=== PATIENT | male | born 1980 | race Caucasian/White ===

== ENCOUNTER 2025-08-22 08:31 | Emergency (ER) | payer BC, SELFPAY ==
--- OUTSIDE RECORDS SUMMARY | 2025-08-22 08:40 | XMS_ITS ---
Author Organization Unknown ENCOUNTERS Encounter Performer Location Date Diagnosis Diagnosis Status Pre Admit [place] [address] [place] [id number] [phone] *Note: Encounters from your own facility or health system may be excluded. Allergies, Adverse Reactions, Alerts Allergen Type Severity Identification Date Medications Name Date Quantity Days Supplied GPI Number
--- OUTSIDE RECORDS SUMMARY | 2025-08-22 08:40 | XMS_ITS | Clinical Summary ---
Author Organization [facility] [address] Address [address] [place] [address] Care Team Providers Care Hydrochloric Area Supervisor Name Role Phone Geovany Islas MD Primary Care Provider Allergies No known active allergies Medications vitamin D3-vitamin K2 25 mcg (1,000 unit)-90 mcg tablet,disintegr ating Take by mouth Active Active Problems Problem Noted Date Diagnosed Date Encounter for preventive health examination 07/10 Assessment & Plan (07/30/2025 4:04 PM CDT): Continue healthy lifestyle. Limit alcohol consumption. Start colon cancer screening at age 45 and prostate cancer screening at age 50. Recommend the following vaccinations: - Annual COVID and flu shots - Tetanus booster every 10 years - Shingrix at age 50 - [id number] at age 50 Assessment & Plan (07/26/2024 12:12 PM CDT): Counseling provided on healthy lifestyle. Exercise 30 minutes per day 5x weekly. Eat heart healthy (Mediterranean) diet of fruits, vegetables, and whole grains; avoid saturated fats and excess sweets. Limit alcohol use; we discussed that although drinking infrequently, having more than 3 beers at a time is considered to be binge drinking. Start colon cancer screening at age 45 and prostate cancer screening at age 50. Recommend the following vaccinations: - Annual COVID and flu shots - Tetanus booster every 10 years - Shingrix at age 50 - Ziezrot24 at age 65 Lipid screening 07/26/2024 Chest tightness 07/26/2024 Assessment & Plan (07/26/2024 12:11 PM CDT): Very low likelihood of cardiac etiology as there is no chest pain with exertion. I offered reassurance. Encounters Date Type Department Care Team Description 08/01/2025 Results Follow-Up [facility] [address] [place] [phone] Geovany Islas MD Comprehensive metabolic panel, CBC with auto differential, TSH, Additional followed-up results: 4 07/30/2025 2:30 PM CDT Office Visit [facility] [address] [place] [phone] Geovany Islas MD Encounter for preventive health examination (Primary Dx); Hyperlipidemia, unspecified hyperlipidemia type; Need for hepatitis B screening test from Last 3 Months Family History Medical History Relation Name Comments Hyperlipidemia Father Atrial fibrillation Mother Heart disease Mother Relation Name Status Comments Father Mother Social History Tobacco Use Types Packs/Day Years Used Date Smoking Tobacco: Never Smokeless Tobacco: Never Tobacco Cessation:Counseling Given: No AUDIT-C Answer Date Recorded Q1: How often do you have a drink containing alc ohol? 2-4 times a month 07/26/2024 Q2: How many drinks containi ng alcohol do you have on a typical day when you are drinking? 7 to 9 07/26/2024 Q3: How often do you have si x or more drinks on one occasion? Monthly 07/26/2024 PHQ-2 Answer Date Recorded PHQ-2 Total Score (If total score is 3 or more points, staff should administer the PHQ-9) 0 07/26/2024 Exercise Vital Sign Answer Date Recorde d On average, how many days pe r week do you engage in moderate to strenuous exercise (like a brisk walk)? 7 days 07/26/2024 On average, how many minutes do you engage in exercise at this level? 60 min 07/26/2024 Sex and Gender Information Value Date Recorded Sex Assigned at Not on file Legal Sex Male 10:36 AM CDT Gender Identity Not on file Sexual Orientation Not on file Last Filed Vital Signs Vital Sign Reading Time Taken Comments Blood Pressure 98/62 07/30/2025 2:59 PM CDT Pulse 53 07/30/2025 2:59 PM CDT Temperature - - Respiratory Rate - - Oxygen Saturation 98% 07/30/2025 2:59 PM CDT Inhaled Oxygen Concentration - - Weight 93.4 kg (206 lb) 07/30/2025 2:59 PM CDT Height 185.4 cm (6' 0.99) 07/30/2025 2:59 PM CD T Body Mass Index 27.18 07/30/2025 2:59 PM CDT Plan of Treatment Health Maintenance Due Date Last Done Comments Varicella Vaccines (1 of 2 - 13+ 2-dose series) 1995 HPV Vaccines (1 - 3-dose SCD M series) 2009 Covid-19 Vaccine (3 - 2024-2 6 season) 2025 12/14/2020, 11/23/2020 Influenza Vaccine (#1) 2025 07/25/2019 Depression Screening 07/26/2025 07/26/2024 DTaP/Tdap/Td Vaccine (2 - Td or Tdap) 05/21/2026 05/21/2016 Regular Well Visit/Exam 18-64 07/30/2026 07/30/2025 Hepatitis C Screening Completed 07/26/2024 Hepatitis B Screening Completed 07/31/2025 Pneumococcal vaccine <65 Aged Out No longer eligible based on patient's age to complete this topic Procedures Procedure Name Priority Date/Time Associated Diagnosis Comments LIPID PANEL Routine 07/31/2025 7:10 AM CDT Hyperlipidemia, unspecified hyperlipidemia type TSH Routine 07/31/2025 7:10 AM CDT Hyperlipidemia, unspecified hyperlipidemia type CBC WITH AUTO DIFFERENTIAL Routine 07/31/2025 7:10 AM CDT Hyperlipidemia, unspecified hyperlipidemia type COMPREHENSIVE METABOLIC PANEL Routine 07/31/2025 7:10 AM CDT Hyperlipidemia, unspecified hyperlipidemia type HEPATITIS B SURFACE ANTIBODY (IMMUNE STATUS) Routine 07/31/2025 7:10 AM CDT Need for hepatitis B screening test HEPATITIS B CORE ANTIBODY, TOTAL Routine 07/31/2025 7:10 AM CDT Need for hepatitis B screening test HEPATITIS B SURFACE ANTIGEN Routine 07/31/2025 7:10 AM CDT Need for hepatitis B screening test HEPATITIS C ANTIBODY Routine 07/26/2024 11:07 AM CDT Encounter for hepatitis C screening test for low risk patient from Last 3 Months or Most Recently Relevant to Health Maintenance Results * CBC with auto differential (07/31/2025 7:10 AM CDT) WBC 5.1 3.8 - 10.8 Thousand/u L [employer] RBC, POC 5.19 4.20 - 5.80 Million/uL [employer] Hgb 15.9 13.2 - 17.1 g/dL [employer] Hct 48.9 38.5 - 50.0 % [employer] MCV 94.2 80.0 - 100.0 fL [employer] MCH 30.6 27.0 - 33.0 pg [employer] MCHC 32.5 32.0 - 36.0 g/dL [employer] Comment: For adults, a slight decrease in the calculated MCHC value (in the range of 30 to 32 g/dL) is most likely not clinically significant; however, it should be interpreted with caution in correlation with other red cell parameters and the patient's clinical condition. Rdw 12.3 11.0 - 15.0 % [employer] Platelets 257 140 - 400 Thousand/u L [employer] MPV 9.8 7.5 - 12.5 fL [employer] Neutrophils, abs 2,310 1,500 - 7,800 cells/uL [employer] Lymphocytes, abs 2,050 850 - 3,900 cells/uL [employer] Monocyte abs 500 200 - 950 cells/uL [facility] Eosinophils, abs 199 15 - 500 cells/uL [facility] [employer] [facility] Basophils, abs 41 0 - 200 cells/uL [employer] Neutrophils 45.3 % [employer] Lymphocyte pct 40.2 % [employer] Monocytes 9.8 % [employer] Eosinophils 3.9 % [employer] Basophils 0.8 % [employer] Blood 07/31/2025 7:10 AM CDT 07/31/2025 7:11 AM CDT Narrative [facility] - 08/01/2025 5:30 AM CDT FASTING:YES FASTING: YES Geovany Islas MD LAB BLOOD ORDERABLES Fi nal Result Performing Organization Address City/[facility] Co de Phone Number [facility] [address] [place] [address] * Hepatitis B core antibody, total Blood (07/31/2025 7:10 AM CDT) Hep B core IgG/IgM NON-REACTI VE NON-REACTI VE [facility] Comment: For additional information, please refer to http://education.InSe[employer] Systems/faq/DTA557 (This link is being provided for informational/ educational purposes only.) Blood 07/31/2025 7:10 AM CDT 07/31/2025 7:11 AM CDT Narrative [facility] - 08/01/2025 5:30 AM CDT FASTING:YES FASTING: YES Geovany Islas MD LAB MICROBIOLOGY - GENE RAL ORDERABLES Final Result Performing Organization Address [facility] de Phone Number [facility] [address] [place] [address] * (ABNORMAL) Hepatitis B surface antibody (immune status) Blood (07/31/2025 7:10 AM CDT) Pathologist [facility] HBsAb (immune status) REACTIVE(A ) NON-REACTI VE [facility] Blood 07/31/2025 7:10 AM CDT 07/31/2025 7:11 AM CDT Narrative [facility] - 08/01/2025 5:30 AM CDT FASTING:YES FASTING: YES Geovany Islas MD LAB MICROBIOLOGY - GENE RAL ORDERABLES Final Result Performing Organization Address [facility] Co de Phone Number [facility] [address] [place] [address] * Hepatitis B Surface Antigen Blood (07/31/2025 7:10 AM CDT) [facility] HepBsAg NON-REACTI VE NON-REACTI VE [facility] Comment: For additional information, please refer to http://education.InSe[employer] Systems/faq/XAA965 (This link is being provided for informational/ educational purposes only.) Blood 07/31/2025 7:10 AM CDT 07/31/2025 7:11 AM CDT Narrative [facility] - 08/01/2025 5:30 AM CDT FASTING:YES FASTING: YES Geovany Islas MD LAB MICROBIOLOGY - GENE RAL ORDERABLES Final Result Performing Organization Address [facility] Co de Phone Number [facility] [address] [place] [address] * TSH (07/31/2025 7:10 AM CDT) [facility] TSH 1.53 0.40 - 4.50 mIU/L [facility] Blood 07/31/2025 7:10 AM CDT 07/31/2025 7:11 AM CDT Narrative [facility] - 08/01/2025 5:30 AM CDT FASTING:YES FASTING: YES Geovany Islas MD LAB BLOOD ORDERABLES Fi nal Result [facility] [address] [place] [address] * (ABNORMAL) Lipid panel (07/31/2025 7:10 AM CDT) [facility] Cholesterol 236(H) <200 mg/dL [facility] HDL 73 > OR = 40 mg/dL [facility] Triglycerides 166(H) <150 mg/dL [facility] LDL 133(H) mg/dL (calc) [facility] Comment: Reference range: <100 Desirable range <100 mg/dL for primary prevention; <70 mg/dL for patients with CHD or diabetic patients with > or = 2 CHD risk factors. LDL-C is now calculated using the Fercho calculation, which is a validated novel method providing better accuracy than the Friedewald equation in the estimation of LDL-C. Hoang CARD et al. DOUGLAS. 2013;310(19): 3217-3897 (http://education.Rue La La/faq/WGV524) Chol/HDL ratio 3.2 <5.0 (calc) [facility] Non-HDL, (LDL+VLDL) 163(H) <130 mg/dL (calc) [facility] Comment: For patients with diabetes plus 1 major ASCVD risk factor, treating to a non-HDL-C goal of <100 mg/dL (LDL-C of <70 mg/dL) is considered a therapeutic option. Blood 07/31/2025 7:10 AM CDT 07/31/2025 7:11 AM CDT Narrative [facility] - 08/01/2025 5:30 AM CDT FASTING:YES FASTING: YES us Geovany Islas MD LAB BLOOD ORDERABLES nal Result [facility] [address] [place] [address] * Comprehensive metabolic panel (07/31/2025 7:10 AM CDT) [facility] Glucose 93 65 - 99 mg/dL [facility] Comment: Whole blood, unspun or partially spun gel barrier tube was received more than 6 hours since collection. A false elevation of K, Phos and LD as well as a false decrease in glucose may occur due to prolonged contact with red cells. Fasting reference interval BUN 19 7 - 25 mg/dL [facility] Creatinine 1.17 0.60 - 1.29 mg/dL [facility] eGFR 79 > OR = 60 mL/min/1.7 3m2 [facility] BUN/creat ratio SEE NOTE: (calc) [facility] Comment: Not Reported: BUN and Creatinine are within reference range. Sodium 140 135 - 146 mmol/L [facility] Potassium, pl 4.3 3.5 - 5.3 mmol/L [facility] Chloride 102 98 - 110 mmol/L [facility] CO2 30 20 - 32 mmol/L [facility] Calcium 9.5 8.6 - 10.3 mg/dL [facility] Protein, sr 7.0 6.1 - 8.1 g/dL [facility] Albumin 4.6 3.6 - 5.1 g/dL [facility] GLOBULIN 2.4 1.9 - 3.7 g/dL (calc) [facility] Alb/glob ratio 1.9 1.0 - 2.5 (calc) [facility] Bilirubin, total 0.6 0.2 - 1.2 mg/dL [facility] Alk phos 39 36 - 130 U/L [facility] AST 15 10 - 40 U/L [facility] ALT (SGPT) 17 9 - 46 U/L [facility] Blood 07/31/2025 7:10 AM CDT 07/31/2025 7:11 AM CDT Narrative [facility] - 08/01/2025 5:30 AM CDT FASTING:YES FASTING: YES Geovany Islas MD LAB BLOOD ORDERABLES Fi nal Result Performing Organization Address City/State/[facility] Co de Phone Number [facility] [address] [place] [address] * Hepatitis C antibody Blood (07/26/2024 11:07 AM CDT) Hep C Ab Nonreactive Nonreactive Comment:Antibodies to HCV no t detected. Does NOT exclude the possibility of recent exposure to HCV. Current interpretive data was last revised on 22 Blood 07/26/2024 11:0 7 AM CDT 07/26/2024 11:29 AM CDT Geovany Islas MD LAB MICROBIOLOGY - GENE RAL ORDERABLES Final Result [facility] Department [place] [address] from Last 3 Months or Most Recently Relevant to Health Maintenance Insurance [employer] ACCESS OOS Algol[employer] OOS Care Teams Hydrochloric Area Supervisor Relationship Specialty Start Date End Date Geovany Islas MD PCP - General Endocrinology Diabetes & Metabolism 04/25/24
--- OUTSIDE RECORDS SUMMARY | 2025-08-22 08:40 | XMS_ITS | Encounter Summary ---
Author Organization [facility] Address [address] [place] [address] Care Team Providers Care Insurance Adjustor Name Role Phone Geovany Islas MD Primary Care Provider Encounter Details Date Type Department Care Team (Late st Contact Info) Description 08/01/2025 Results Follow-Up [facility] [address] [facility] [address] [place] [address] Geovany Islas MD [facility] [address] [place] [address] Comprehensive metabolic panel, CBC with auto differential, TSH, Additional followed-up results: 4 Social History Tobacco Use Types Packs/Day Years Used Date Smoking Tobacco: Never Smokeless Tobacco: Never AUDIT-C Answer Date Recorded Q1: How often [...] on file Sexual Orientation Not on file documented as of this encounter Miscellaneous Notes * Result Encounter Note - Geovany Islas MD - 08/01/2025 8:19 AM CDT Labs look good. Cholesterol stable from prior. Immune to hepatitis B. Kidney function, liver function, thyroid, blood counts are normal. documented in this encounter Plan of Treatment Not on file documented as of this encounter Visit Diagnoses Not on filedocumented in this encounter Care Teams Insurance Adjustor Relationship Specialty Start Date End Date Geovany Islas MD PCP - General Endocrinology Diabetes & Metabolism 04/25/24 documented as of this encounter
[2025-08-22 08:45] VITALS: BP 122/78; PULSE 54; RESP 18; TEMP 37.1; O2SAT 100
--- NOTE | 2025-08-22 09:46 | PC.NURSE ---
tourniquet placed at 0946 on right thumb
--- NOTE | 2025-08-22 11:06 | ED_ITS ---
HPI - Wound/Laceration General Chief Complaint: Wound/Laceration Stated Complaint: laceration Time Seen by Provider: 08/22/25 09:05 Source: patient Mode of arrival: ambulatory Limitations: no limitations History of Present Illness HPI narrative: This is a 45 year old male that presents to the ER for laceration to the right thumb. Sustained just prior to arrival. Avulsed skin on his thumb with a mirror he was carrying that broke. Denies decreased ROM or numbess. Related Data Allergies Allergy/AdvReac Type Severity Reaction Status Date / Time No Known Allergies Allergy Unverified 08/27/25 11:35 Review of Systems Review of Systems: All systems reviewed & are unremarkable except as noted in HPI and below PMFSH Family History Family History (Updated 11/09/16 @ 08:15 by DOCTOR UNKNOWN) Father Hypertension Mother Patient's mother is in good health Sibling Patient's brother is in good health Social History Social History Smoking status: Never smoker Second hand tobacco smoke exposure: No Alcohol intake: current Exam Narrative: GENERAL: Well-appearing, well-nourished, and in no acute distress. HEAD: Normocephalic, atraumatic. EYES: EOMI. EXTREMITIES: Normal range of motion. No edema. Large skin avulsion to the lateral aspect of the thumb SKIN: Warm, dry, no rash. NEURO: No focal deficits. Alert and oriented x3. PSYCH: Normal mood and affect Course Consultations Consultation #1: Spoke with Dr. Thao who recommends bleeding control with lidocaine with epi on gauze applied to the area. Dress with antibiotic ointment and xeroform. He may follow up in clinic Date: 08/22/25 Vital Signs Vital signs: Vital Signs Temperature 98.7 F 08/22/25 08:45 Pulse Rate 54 L 08/22/25 08:45 Respiratory Rate 18 08/22/25 08:45 Blood Pressure 122/78 08/22/25 08:45 Pulse Oximetry 100 08/22/25 08:45 Temperature 98.7 F 08/22/25 08:45 Pulse Rate 62 08/22/25 11:31 Respiratory Rate 18 08/22/25 11:31 Blood Pressure 130/72 08/22/25 11:31 Pulse Oximetry 100 08/22/25 11:31 Procedures Laceration Laceration 1: Date: 08/22/25 Site: upper extremity Side (If applicable): right Size (cm): 4 Description: other (skin avulsion) Depth: simple, single layer ====== Skin Level ====== ====== Subcutaneous Layer ====== ====== Muscle Layer ====== ====== Tendon Layer ====== Dressing: Wound irrigated and bleeding controlled with lidocaine with epi topically, dressed with Xeroform, antibiotic ointment, nonstick dressing MDM - Wound/Laceration MDM Narrative Medical decision making narrative: Patient presents to the emergency department with large skin avulsion to the right lateral aspect of the thumb. Plastics consulted, bleeding controlled and wound dressed as directed. Tetanus is up to date. Will follow up with Dr. Thao in clinic Differential Diagnosis Differential diagnosis: Likely laceration and avulsion of skin Critical Care Time Critical Care Time Critical Care Time: No Discharge Plan Discharge Clinical Impression: Laceration Patient Disposition: Home Condition: Stable Instructions: Antibiotic Form, Skin Avulsion (ED) Additional Instructions: Return to the emergency department if you experience fever, redness or swelling of your wound, abnormal drainage from your wound, or any other symptoms that are concerning to you. Leave the bandage on for the next 2-3 days. When you shower let the water run over the wound. Apply antibiotic ointment and nonstick bandage and wrap with gauze. If you have trouble with bleeding again hold pressure to the area for 15 minutes solid without moving the gauze/peeking at the wound. Take oral antibiotic as prescribed Follow-up with plastic surgery (Dr. Thao) for further management Patient Language: Lithuanian Prescriptions: New cephalexin 500 mg capsule 500 mg PO Q8H 5 Days Qty: 15 0RF hydrocodone-acetaminophen 5-325 mg tablet 1 tablet PO Q6H PRN (Reason: pain) Qty: 10 0RF Follow-up/Referrals: Jah Thao MD [Physician, Plastic Surgery] PHYSICIAN,ASSEMBLER [facility] [Primary Care Provider, Internal Medicine]
--- OUTSIDE RECORDS SUMMARY | 2025-08-22 11:23 | XMS_ITS | Clinical Summary ---
Author Organization [facility] [address] Address [address] [place] [address] Care Team Providers Care Pipe Line Repairer Name Role Phone Geovany Islas MD Primary [...] years - Shingrix at age 52 - [id number] at age 52 Assessment & Plan (07/26/2024 [...] years - Shingrix at age 52 - [id number] at age 67 Lipid screening 07/26/2024 Chest tightness 07/26/2024 Assessment & Plan (07/26/2024 12:11 PM CDT): Very low likelihood of cardiac etiology as there is no chest pain with exertion. I offered reassurance. Encounters Date Type Department Care Team Description 08/01/2025 Results Follow-Up [facility] [address] [place] [phone] Geovany Islas MD Comprehensive metabolic panel, CBC with auto differential, TSH, Additional followed-up results: 4 07/30/2025 2:30 PM CDT Office Visit [facility] [address] [place] [phone] Geovany Islas MD Encounter for preventive health [...] WBC 5.1 3.8 - 10.8 Thousand/u L [employer] RBC, POC 5.19 4.20 - 5.80 Million/uL [employer] Hgb 15.9 13.2 - 17.1 g/dL [employer] Hct 48.9 38.5 - 50.0 % [employer] MCV 94.2 80.0 - 100.0 fL [employer] MCH 30.6 27.0 - 33.0 pg [employer] MCHC 32.5 32.0 - 36.0 g/dL [employer] Comment: For adults, a slight decrease in the calculated MCHC value (in the range of 30 to 32 g/dL) is most likely not clinically significant; however, it should be interpreted with caution in correlation with other red cell parameters and the patient's clinical condition. Rdw 12.3 11.0 - 15.0 % [employer] Platelets 257 140 - 400 Thousand/u L [employer] MPV 9.8 7.5 - 12.5 fL [employer] Neutrophils, abs 2,310 1,500 - 7,800 cells/uL [employer] Lymphocytes, abs 2,050 850 - 3,900 cells/uL [employer] Monocyte abs 500 200 - 950 cells/uL [employer] [facility] Eosinophils, abs 199 15 - 500 cells/uL [employer] [place] Basophils, abs 41 0 - 200 cells/uL [employer] Neutrophils 45.3 % [employer] Lymphocyte pct 40.2 % [employer] Monocytes 9.8 % [employer] Eosinophils 3.9 % [employer] Basophils 0.8 % [employer] Blood 07/31/2025 7:10 AM CDT 07/31/2025 7:11 AM CDT Narrative [facility] - 08/01/2025 5:30 AM CDT FASTING:YES FASTING: YES Geovany Islas MD LAB BLOOD ORDERABLES Fi nal Result Performing Organization Address [facility] Co de Phone Number [facility] [address] [place] [address] * Hepatitis B core antibody, total Blood (07/31/2025 7:10 AM CDT) Hep B core IgG/IgM NON-REACTI VE NON-REACTI VE [facility] Comment: For additional information, please refer to http://education.Zenoss/faq/LMF507 (This link is being provided for informational/ educational purposes only.) Blood 07/31/2025 7:10 AM CDT 07/31/2025 7:11 AM CDT Narrative [facility] - 08/01/2025 5:30 AM CDT FASTING:YES FASTING: YES Geovany Islas MD LAB MICROBIOLOGY - GENE RAL ORDERABLES Final Result Performing Organization Address [facility] de Phone Number [email or web address] [address] [place] [address] * (ABNORMAL) Hepatitis B surface antibody (immune status) Blood (07/31/2025 7:10 AM CDT) Pathologist [facility] HBsAb (immune status) REACTIVE(A ) NON-REACTI VE [facility] Blood 07/31/2025 7:10 AM CDT 07/31/2025 7:11 AM CDT Narrative [facility] - 08/01/2025 5:30 AM CDT FASTING:YES FASTING: YES Geovany Islas MD LAB MICROBIOLOGY - GENE RAL ORDERABLES Final Result Performing Organization Address [facility] Co de Phone Number [facility] [address] [place] [address] * Hepatitis B Surface Antigen Blood (07/31/2025 7:10 AM CDT) [facility] HepBsAg NON-REACTI VE NON-REACTI VE [facility] Comment: For additional information, please refer to http://education.Zenoss/faq/DJM209 (This link is being provided for informational/ educational purposes only.) Blood 07/31/2025 7:10 AM CDT 07/31/2025 7:11 AM CDT Narrative [facility] - 08/01/2025 5:30 AM CDT FASTING:YES FASTING: YES Geovany Islas MD LAB MICROBIOLOGY - GENE RAL ORDERABLES Final Result Performing Organization Address [facility] Co de Phone Number [email or web address] [address] [place] [address] * TSH (07/31/2025 7:10 AM CDT) [facility] TSH 1.53 0.40 - 4.50 mIU/L [facility] Blood 07/31/2025 7:10 AM CDT 07/31/2025 7:11 AM CDT Narrative [facility] - 08/01/2025 5:30 AM CDT FASTING:YES FASTING: YES Geovany Islas MD LAB BLOOD ORDERABLES Fi nal Result [facility] [address] [place] [address] * (ABNORMAL) Lipid panel (07/31/2025 7:10 AM CDT) [facility] Cholesterol 236(H) <200 mg/dL [facility] [...] LDL-C. Hoang CARD et al. DOUGLAS. 2013;310(19): 3855-7010 (http://education.ViaBill/faq/BGE592) Chol/HDL ratio 3.2 <5.0 (calc) [facility] Non-HDL, (LDL+VLDL) 163(H) <130 mg/dL (calc) [facility] Comment: For patients with diabetes plus 1 major ASCVD risk factor, treating to a non-HDL-C goal of <100 mg/dL (LDL-C of <70 mg/dL) is considered a therapeutic option. Blood 07/31/2025 7:10 AM CDT 07/31/2025 7:11 AM CDT Narrative [facility] - 08/01/2025 5:30 AM CDT FASTING:YES FASTING: YES us Geovany Islas MD LAB BLOOD ORDERABLES nal Result [facility] [address] [place] [address] * Comprehensive metabolic panel (07/31/2025 7:10 AM CDT) [facility] Glucose 93 65 - 99 mg/dL [facility] Comment: Whole blood, unspun or partially [...] > OR = 60 mL/min/1.7 3m2 [facility] BUN/creat ratio SEE NOTE: (calc) [facility] Comment: Not Reported: BUN and Creatinine are within reference range. Sodium 140 135 - 146 mmol/L [facility] Potassium, pl 4.3 3.5 - [...] ratio 1.9 1.0 - 2.5 (calc) [facility] Bilirubin, total 0.6 0.2 - 1.2 mg/dL [facility] Alk phos 39 36 - 130 U/L [facility] AST 15 10 - 40 U/L [facility] ALT (SGPT) 17 9 - 46 U/L [facility] Blood 07/31/2025 7:10 AM CDT 07/31/2025 7:11 AM CDT Narrative [facility] - 08/01/2025 5:30 AM CDT FASTING:YES FASTING: YES Geovany Islas MD LAB BLOOD ORDERABLES Fi nal Result Performing Organization Address City/State/[facility] Co de Phone Number [facility] [address] [place] [address] * Hepatitis C antibody Blood (07/26/2024 11:07 AM CDT) Hep C Ab Nonreactive Nonreactive Comment:Antibodies to HCV no t detected. Does NOT exclude the possibility of recent exposure to HCV. Current interpretive data was last revised on 22 Blood 07/26/2024 11:0 7 AM CDT 07/26/2024 11:29 AM CDT Geovany Islas MD LAB MICROBIOLOGY - GENE RAL ORDERABLES Final Result [facility] Department [place] [address] from Last 3 Months or Most Recently Relevant to Health Maintenance Insurance [employer] Care Teams Pipe Line Repairer Relationship Specialty Start Date End Date Geovany Islas MD PCP - General Endocrinology Diabetes & Metabolism 04/25/24
--- OUTSIDE RECORDS SUMMARY | 2025-08-22 11:23 | XMS_ITS | Encounter Summary ---
Author Organization [facility] Address [address] [place] [address] Care Team Providers Care Director Of Early Childhood Education Name Role Phone Geovany Islas MD Primary Care Provider Encounter Details Date Type Department Care Team (Late st Contact Info) Description 08/01/2025 Results Follow-Up [facility] [address] [facility] [address] [place] [address] Geovany Islas MD [facility] [address] [place] [address] Comprehensive metabolic panel, CBC with [...] on filedocumented in this encounter Care Teams Director Of Early Childhood Education Relationship Specialty Start Date End Date Geovany Islas MD PCP - General Endocrinology Diabetes & Metabolism 04/25/24 documented as of this encounter
[2025-08-22 11:31] VITALS: BP 130/72; PULSE 62; RESP 18; O2SAT 100
== END 2025-08-22 11:27 | disposition home or self-care (01) ==
PROVIDERS: Emergency Provider Physician Assistant
DX: S61.011A Laceration without foreign body of right thumb without damage to nail, initial encounter (principal); W45.8XXA Other foreign body or object entering through skin, initial encounter
CPT/HCPCS: 99283